=== PATIENT | female | born 1955 | race Caucasian/White ===

== ENCOUNTER 2024-10-26 09:36 | Outpatient (CLI) | payer MEDICARE | END 2024-10-26 23:59 | disposition home or self-care (01) | LOC: MRI02 09:36 | PROVIDERS: ATTEND Physician Assistant Medical | DX: M47.817 Spondylosis without myelopathy or radiculopathy, lumbosacral region (principal); M54.50 Low back pain, unspecified; M43.8X6 Other specified deforming dorsopathies, lumbar region; M48.07 Spinal stenosis, lumbosacral region | CPT/HCPCS: 72148 ==